=== PATIENT | female | born 1990 | race Caucasian/White ===

== ENCOUNTER 2018-06-06 03:43 | Emergency (ER) | payer OTHER ==
[~2018-06-06] VITALS: Ht 167.6 cm; Wt 96.6 kg
[~2018-06-06 03:43] MED LIST: COLC0.6T37 PO; IBUP-1222 PO
[2018-06-06] MEDS ORDERED: METO25TA35 PO (03:51)
[2018-06-06] MEDS ORDERED: FLUDROCORTISONE (03:51)
--- NOTE | 2018-06-06 04:03 | NUR ---
Pt c/o lower abd pain since yesterday. States vomiting 2-3 times since pain started. Pt states she has not been able to keep food down. Pt was seen recently for CP-states this pain is different and feels unrelated. Pt presents with no s/s of acute distress. VSS. NSR on monitor. Provider at bedside to eval. Awaiting orders. Warm blanket given and call light in reach.
[2018-06-06] MEDS ORDERED: ONDANSETRON ODT 4 MG ONE (04:15)
[2018-06-06] MEDS ORDERED: ONDANSETRON ODT 4 MG PO ONE (04:30)
--- NOTE | 2018-06-06 04:40 | NUR ---
LAB AT BEDSIDE FOR BLOOD DRAW.
--- NOTE | 2018-06-06 04:50 | NUR ---
PT SITTING WITH NO S/S OF ACUTE DISTRESS. PT DECLINES ZOFRAN AT THIS TIME--STATES NO NAUSEA AND IS REQUESTING WATER. DISCUSSED NPO STATUS UNTIL RESULTS ARE REVIEWED. PT AGREES. NSR ON MONITOR. PT STATES PAIN IS 6/10 AND REQUESTING SOMETHING TO HELP. CALL LIGHT IN REACH. DISCUSSED WITH AMANDA FELIPE, AND ORDERS RECEIVED.
[2018-06-06 04:54] LABS: BASOPHILS # (AUTO) 0.03 x10^3/uL (0-0.1); BASOPHILS % (AUTO) 0 % (0-1); EOSINOPHILS % (AUTO) 1 % (1-7); LYMPHOCYTES # (AUTO) 1.64 x10^3/uL (1-3.4); LYMPHOCYTES % (AUTO) 17 % (22-44); MD NO; MEAN CORPUSCULAR HEMOGLOBIN 29.1 pg (27.0-34.8); MEAN CORPUSCULAR HGB CONC 34.1 g/dL (32.4-35.8); MEAN CORPUSCULAR VOLUME 85.4 fL (80-100); MEAN PLATELET VOLUME 7.6 fL (7.4-10.4); MONOCYTES # (AUTO) 0.72 x10^3/uL (0.2-0.8); MONOCYTES % (AUTO) 7 % (2-9); NEUTROPHILS % (AUTO) 75 % (42-75); PLATELET COUNT 264 x10^3/uL (130-400); RED BLOOD COUNT 4.64 x10^6/uL (3.82-5.3); RED CELL DISTRIBUTION WIDTH 13.1 % (9.6-15.2)
[2018-06-06] MEDS ORDERED: METOCLOPRAMIDE 10MG TABLET PO ONE (05:00)
[2018-06-06 05:01] LABS: ALANINE AMINOTRANSFERASE 25 U/L (12-78); ALBUMIN 3.9 g/dL (3.4-5.0); ANION GAP 6 mmol/L (5-15); CALCIUM 8.4 mg/dL (8.5-10.1); CHLORIDE 109 mmol/L (98-107); CREATININE 0.92 mg/dL (0.55-1.02)
[2018-06-06 05:05] LABS: ALKALINE PHOSPHATASE 44 U/L (45-117); BILIRUBIN,TOTAL 0.3 mg/dL (0.2-1.0); TOTAL PROTEIN 7.7 g/dL (6.4-8.2)
[2018-06-06] MEDS ORDERED: METOCLOPRAMIDE 10MG TABLET ONE (05:10)
--- NOTE | 2018-06-06 05:19 | NUR ---
PT STATES UNABLE TO PROVIDE UA RIGHT NOW--REQUESTING WATER. DESTINEE AWARE AND IS AT BEDSIDE TO RECHECK AND DISCUSS D/C.
[2018-06-06 05:40] VITALS: BP 144/95
== END 2018-06-06 05:43 | disposition home or self-care (01) ==
LOC: ED 05:15
DX: R10.12 Left upper quadrant pain (principal); R10.32 Left lower quadrant pain; R11.2 Nausea with vomiting, unspecified; I10 Essential (primary) hypertension
CPT/HCPCS: 36415; 80053; 83690; 84703; 85025; 86677; 99283